=== PATIENT | male | born 1940 | race Caucasian/White ===

== ENCOUNTER → 2018-08-20 | Outpatient (CLI) | payer MEDICARE, OTHER ==
[~2018-08-20] MED LIST: AMLO5 PO; Bactrim 400-801 EACH PO; OMEGA 3-6-9 11200 MG PO; ONDA8 PO; POTA8 PO; SYNTHROID100 MC1 PO; TAMS.4ER PO; THERA1 EACH PO; ZESTORETIC 20-251 EA PO
[2018-08-20 12:37] LABS: Source, Urine Clean Catch
[2018-08-20 13:22] LABS: Appearance, Urine Clear (Clear); Bilirubin, Urine Neg (Neg); Blood, Urine Neg (Neg); Color, Urine Yellow (P-Yellow); Glucose Qualitative, Urine Neg (Neg); Ketones, Urine Neg (Neg); Leukocyte Esterase, Urine Neg (Neg); Nitrite, Urine Neg (Neg); Protein, Urine 1+ (Neg); Specific Gravity, Urine 1.025 (1.003-1.022); Urobilinogen, Urine NORM (Normal)
== END | disposition home or self-care (01) ==
LOC: LAB 12:37 → LAB SHORT 12:37
PROVIDERS: Internal Medicine
DX: N39.0 Urinary tract infection, site not specified (principal)
CPT/HCPCS: 81003

== ENCOUNTER 2018-11-12 10:48 | Emergency (ER) | payer MEDICARE, OTHER ==
[~2018-11-12] VITALS: Ht 172.7 cm; Wt 90.7 kg
[2018-11-12] MEDS ORDERED: ZESTORETIC 20-251 EA (11:05)
[2018-11-12] MEDS ORDERED: Norco 5-325 Ta1 EACH PO (12:54)
[2018-11-12] MEDS ORDERED: CYCL10 PO (12:54)
== END 2018-11-12 13:09 | disposition home or self-care (01) ==
LOC: ER 10:48
DX: M25.552 Pain in left hip (principal); Z79.899 Other long term (current) drug therapy; I10 Essential (primary) hypertension; E03.9 Hypothyroidism, unspecified
CPT/HCPCS: 73502; 96372; 99283-25; A9270-GY; J1885

== ENCOUNTER 2021-12-20 08:18 | Observation (INO) | payer MEDICARE, OTHER ==
[~2021-12-20] VITALS: Ht 170.2 cm; Wt 86.2 kg
[~2021-12-20 08:18] MED LIST changes: +CLOP75 PO; +CYCL10 PO; +GABA300 PO; +LISI20 PO; +LOW DOSE ASPIRI81 M1 PO; +Norco 5-325 Ta1 EACH PO; +ZESTORETIC 20-251 EA
[2021-12-20] MEDS ORDERED: POTA8 PO (08:35)
[2021-12-20 09:35] LABS: BASOPHILS ABSOLUTE AUTO 0.02 K/mm3 (0.00-0.23); BASOPHILS PERCENT AUTO 0 % (0-2); EOSINOPHILS ABSOLUTE AUTO 0.11 K/mm3 (0.00-0.68); EOSINOPHILS PERCENT AUTO 2 % (0-6); Hematocrit 42.4 % (37.0-53.0); Hemoglobin 14.8 g/dL (13.5-17.5); IMMATURE GRAN ABSOLUTE AUTO 0.02 K/mm3 (0.00-0.10); IMMATURE GRAN PERCENT AUTO 0 % (0-1); LYMPHOCYTES PERCENT AUTO 39 % (21-46); MONOCYTES ABSOLUTE AUTO 0.43 K/mm3 (0.16-1.47); MONOCYTES PERCENT AUTO 8 % (4-13); Mean Corpuscular HGB 31.2 pg (26.0-34.0); Mean Corpuscular HGB Conc 34.9 g/dL (31.5-36.5); Mean Corpuscular Volume 89 fL (80-100); Mean Platelet Volume 10.3 fL (9.1-12.4); NEUTROPHILS ABSOLUTE AUTO 2.94 K/mm3 (1.96-9.15); NEUTROPHILS PERCENT AUTO 52 % (41-73); Platelet Count 216 K/mm3 (150-400); RDW Coefficient Variation 12.5 % (11.7-14.2); RDW Standard Deviation 41.1 fL (35.1-46.3); Red Blood Cell Count 4.75 M/mm3 (4.30-5.90); White Blood Cell Count 5.72 K/mm3 (4.00-11.30)
[2021-12-20 09:40] LABS: Albumin, Blood 3.8 g/dL (3.4-5.0); Bilirubin, Total 0.6 mg/dL (0.1-1.0); Bun/Creatinine Ratio 12.2 (12.0-20.0); Calcium, Blood 8.8 mg/dL (8.5-10.1); Creatinine, Blood 0.9 mg/dL (0.60-1.20); Globulin, Blood 3.8 g/dL (2.2-4.0); Potassium, Blood 3.8 mmol/L (3.5-5.5); Total Protein, Blood 7.6 g/dL (6.4-8.2)
[2021-12-20] MEDS ORDERED: HYDROCHLOROTHIA25 MG PO (13:38)
[2021-12-22 05:51] LABS: CHOL/HDL RATIO 5.3; Cholesterol 164 mg/dL (50-200); HDL Cholesterol 31 mg/dL (>39); Low Density Lipoprotein Chol 93 mg/dL (0-110); Triglycerides 200 mg/dL (30-160); Very Low Density Lipoprot Chol 40 mg/dL (6-32)
[2021-12-22] MEDS ORDERED: ACET325 PO (12:29)
[2021-12-22] MEDS ORDERED: ATOR80 PO (12:29)
[2021-12-22] MEDS ORDERED: ENOXAPARIN40 MG/0.4 SC (12:30)
[2021-12-22 13:19] LABS: Influenza A, PCR NEGATIVE (NEGATIVE); Influenza B, PCR NEGATIVE (NEGATIVE); Resp Syncytial Virus, PCR NEGATIVE (NEGATIVE); SARS-Cov-2 (COVID-19) PCR, MMC NEGATIVE (NEGATIVE)
== END 2021-12-22 15:19 ==
LOC: ER 08:18 → MEDS 08:19
PROVIDERS: Internal Medicine; Physician Assistant; ADMIT Internal Medicine
DX: I63.213 Cerebral infarction due to unspecified occlusion or stenosis of bilateral vertebral arteries (principal); I63.531 Cerebral infarction due to unspecified occlusion or stenosis of right posterior cerebral artery; I10 Essential (primary) hypertension; I08.2 Rheumatic disorders of both aortic and tricuspid valves; E03.9 Hypothyroidism, unspecified; I49.3 Ventricular premature depolarization; E78.1 Pure hyperglyceridemia; N40.0 Benign prostatic hyperplasia without lower urinary tract symptoms; Z96.611 Presence of right artificial shoulder joint; Z96.612 Presence of left artificial shoulder joint; Z90.49 Acquired absence of other specified parts of digestive tract; Z79.01 Long term (current) use of anticoagulants; Z79.82 Long term (current) use of aspirin; Z87.891 Personal history of nicotine dependence; Z20.822 Contact with and (suspected) exposure to COVID-19
CPT/HCPCS: 0241U; 36415; 70450; 70551; 80053; 80061; 82947; 85025; 93005; 93010; 93306; 97110; 97110-CQ; 97112; 97116; 97162; 97166; 97530; 97530-CQ; 99285-25; A9270; J1650; J7030

== ENCOUNTER 2022-05-07 06:38 | Day surgery (SDC) | payer MEDICARE, OTHER ==
[~2022-05-07] VITALS: Ht 172.7 cm; Wt 81.8 kg
[~2022-05-07 06:38] MED LIST changes: +ACET325 PO; +ATOR80 PO; +ENOXAPARIN40 MG/0.4 SC; +HYDROCHLOROTHIA25 MG PO; +METOPROLOL SUCC25 MG PO
--- NOTE | 2022-05-07 12:12 | NUR ---
PT DRESSED, IV DC'D INTACT, TR BAND REMOVED, DRESSING PLACED, R WRIST SPLINT, ARM SLING IN PLACE. PT DC'D BY WC WITH DRIVING PT HOME. CARDIOLOGY OFFICE TO CALL IN METOPROLOL SCRIPT TO [facility]
== END 2022-05-07 12:00 | disposition home or self-care (01) ==
LOC: MHTC 06:38
DX: I25.10 Atherosclerotic heart disease of native coronary artery without angina pectoris (principal); E78.5 Hyperlipidemia, unspecified; I10 Essential (primary) hypertension; I25.5 Ischemic cardiomyopathy; Z86.73 Personal history of transient ischemic attack (TIA), and cerebral infarction without residual deficits; Z79.82 Long term (current) use of aspirin
CPT/HCPCS: 76937; 93454; 99152; 99153; A9270; C1769; C1887; C1894; J1644; J3010; J7030; J7040; J7050; Q9967

== ENCOUNTER 2023-12-11 08:39 | Day surgery (SDC) | payer MEDICARE, OTHER ==
[~2023-12-11] VITALS: Ht 172.7 cm; Wt 79.9 kg
[~2023-12-11 08:39] MED LIST changes: +Lactated Ringer's 1,000 ML IV ONE; +ZESTORETIC 20-1 EAC1 PO; +propofoL 50 ML IV ONE
[2023-12-11] MEDS ORDERED: Lactated Ringer's 1,000 ML IV ONE (09:10)
--- NOTE | 2023-12-11 09:25 | NUR ---
12/11/23 0925 Ora Barrera PT. DENIES ANY PAIN. PT. 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
[2023-12-11 10:41] VITALS: BP 126/74
== END 2023-12-11 11:04 | disposition home or self-care (01) ==
LOC: ORSCSDS 08:39
PROVIDERS: Internal Medicine Gastroenterology
PROC: 0DBH8ZX Excision of Cecum, Via Natural or Artificial Opening Endoscopic, Diagnostic (ICD-10-PCS; principal; 2023-12-11 10:15)
PROC: 0DBN8ZX Excision of Sigmoid Colon, Via Natural or Artificial Opening Endoscopic, Diagnostic (ICD-10-PCS; principal; 2023-12-11 10:15)
DX: Z12.11 Encounter for screening for malignant neoplasm of colon (principal); Z85.048 Personal history of other malignant neoplasm of rectum, rectosigmoid junction, and anus; K51.40 Inflammatory polyps of colon without complications; D12.5 Benign neoplasm of sigmoid colon; E07.9 Disorder of thyroid, unspecified; I10 Essential (primary) hypertension; I47.29 Other ventricular tachycardia; Z87.891 Personal history of nicotine dependence; Z79.899 Other long term (current) drug therapy
CPT/HCPCS: 88305; J2704; J7120